=== PATIENT | female | born 1945 | race Hispanic/Latino ===

== ENCOUNTER 2017-12-06 17:23 | Emergency (ER) | payer MEDICARE ==
[2017-12-06] MEDS ORDERED: ACETAMINOPHEN 325 MG TAB ONE (17:47)
[2017-12-06] MEDS ORDERED: TETANUS/DIPHTHERIA TOXOID [ADULT] 0.5 ML VIAL IM ONE (17:49)
== END 2017-12-06 18:57 | disposition home or self-care (01) ==
LOC: EDH 17:23
DX: S05.11XA Contusion of eyeball and orbital tissues, right eye, initial encounter (principal); E78.5 Hyperlipidemia, unspecified; E11.9 Type 2 diabetes mellitus without complications; Z98.890 Other specified postprocedural states; Z90.710 Acquired absence of both cervix and uterus; W01.0XXA Fall on same level from slipping, tripping and stumbling without subsequent striking against object, initial encounter; Y93.01 Activity, walking, marching and hiking; Y92.89 Other specified places as the place of occurrence of the external cause; Y99.8 Other external cause status
CPT/HCPCS: 70450; 70480; 90471; 90714

== ENCOUNTER → 2018-05-23 | Outpatient (CLI) | payer OTHER, MEDICARE | END | disposition home or self-care (01) | LOC: OIH 15:54 | PROVIDERS: ATTEND Internal Medicine | DX: I10 Essential (primary) hypertension (principal); I70.0 Atherosclerosis of aorta; M47.815 Spondylosis without myelopathy or radiculopathy, thoracolumbar region | CPT/HCPCS: 71046 ==

== ENCOUNTER → 2019-04-20 | Outpatient (CLI) | payer OTHER, MEDICARE | END | disposition home or self-care (01) | LOC: OIH 11:06 | PROVIDERS: ATTEND Internal Medicine | DX: M47.814 Spondylosis without myelopathy or radiculopathy, thoracic region (principal); I70.0 Atherosclerosis of aorta; I10 Essential (primary) hypertension | CPT/HCPCS: 71046 ==

== ENCOUNTER → 2021-07-30 | Outpatient (CLI) | payer OTHER, MEDICARE ==
[2021-07-30 08:56] LABS: INR 1.05 (0.85-1.15); PROTHROMBIN TIME 11.4 SEC (9.6-11.6)
[2021-07-30 08:57] LABS: PARTIAL THROMBOPLASTIN TIME 26.8 SEC (26.3-35.5)
== END | disposition home or self-care (01) ==
LOC: RAH 07:47
PROVIDERS: ATTEND Internal Medicine
DX: E04.1 Nontoxic single thyroid nodule (principal); Z79.01 Long term (current) use of anticoagulants
CPT/HCPCS: 10005; 36415; 76942; 85610; 85730; 88173; 88305

== ENCOUNTER → 2023-05-26 | Outpatient (CLI) | payer OTHER, MEDICARE | END | disposition home or self-care (01) | LOC: RAH 08:52 | PROVIDERS: ATTEND Internal Medicine | DX: R17 Unspecified jaundice (principal) | CPT/HCPCS: 76700 ==

== ENCOUNTER → 2024-08-22 | Outpatient (CLI) | payer OTHER, MEDICAID ==
--- NOTE | 2024-08-22 09:31 | HMCIMG ---
Exam Type: Complete abdominal ultrasound with hepatic color-flow Doppler Clinical Information: Jaundice Comparison: None Findings: The liver shows fatty infiltration and is enlarged, measuring 20 and is otherwise unremarkable. Doppler evaluation shows patent portal and hepatic veins. The gallbladder shows no significant abnormalities. Specifically, no calculi are seen. No bile duct dilatation is noted. The gallbladder wall measures 2 mm. The common bile duct measures 4 mm. The kidneys show no hydronephrosis or calculi, masses or other abnormalities. The pancreas is suboptimally visualized. The spleen is unremarkable. The aorta and inferior vena cava show no significant abnormalities. IMPRESSION: FATTY LIVER INFILTRATION AND HEPATOMEGALY. No biliary dilatation. OTHERWISE NORMAL ABDOMINAL ULTRASOUND.
== END | disposition home or self-care (01) ==
LOC: RAH 08:45
PROVIDERS: ATTEND Internal Medicine
DX: K76.0 Fatty (change of) liver, not elsewhere classified (principal); R16.0 Hepatomegaly, not elsewhere classified
CPT/HCPCS: 76700

== ENCOUNTER → 2024-12-11 | Outpatient (CLI) | payer OTHER, MEDICAID ==
--- NOTE | 2024-12-11 10:10 | HMCIMG ---
History: Jaundice Technique: Limited right upper quadrant ultrasound Findings: Liver measures 19.4 cm and demonstrates increased echogenicity The gallbladder is unremarkable. Common bile duct measures 3 mm. Visualized pancreas is within normal limits. Right kidney measures 1.4 cm without focal abnormality Impression: Enlarged fatty liver. /Catrachito
== END | disposition home or self-care (01) ==
LOC: RAH 07:40
PROVIDERS: ATTEND Internal Medicine
DX: K76.0 Fatty (change of) liver, not elsewhere classified (principal)
CPT/HCPCS: 76705